=== PATIENT | female | born 1935 | race Caucasian/White ===

== ENCOUNTER 2018-06-02 09:48 | Emergency (ER) | payer MEDICARE ==
[2018-06-02 10:06] VITALS: BP 157/104
--- NOTE | 2018-06-02 11:11 | UC ---
Hand/Wrist HPI - HPI Summary HPI Summary: 82 yo female injured left hand during a fall last PM swollen this AM denies pain right handed denies other injury - History Of Current Complaint Chief Complaint: UCUpperExtremity Stated Complaint: HAND INJURY Time Seen by Provider: 06/02/18 10:36 Hx Obtained From: Patient Mechanism Of Injury: bent over to pet dog and fell forward Onset/Duration: Sudden Onset Severity Initially: Mild Severity Currently: None Pain Intensity: 0 Pain Scale Used: 0-10 Numeric Character Of Pain: Aching - hand feels tight Aggravating Factor(s): Movement Associated Signs And Symptoms: Positive: Swelling, Bruising Related History: Dominant Hand Right - Allergies/Home Medications Allergies/Adverse Reactions: Allergies Allergy/AdvReac Type Severity Reaction Status Date / Time No Known Allergies Allergy Verified 06/02/18 10:07 Home Medications: Home Medications Ascorbic Acid [Vitamin C] 1,000 mg PO DAILY 06/02/18 [History Confirmed 06/02/18 ] PMH/Surg Hx/FS Hx/Imm Hx Previously Healthy: Yes Endocrine History: Hypothyroidism - Surgical History Surgical History: Yes Surgery Procedure, Year, and Place: rt shoulder SX and replacement; recently FX left wrist X 2. REMOVAL OF LESION FROM LEG - Family History Known Family History: Positive: Hypertension - Social History Alcohol Use: Occasionally Substance Use Type: None Smoking Status (MU): Former Smoker Type: Cigarettes Amount Used/How Often: 1/4 PPD Length of Time of Smoking/Using Tobacco: 7 years Have You Smoked in the Last Year: No When Did the Patient Quit Smoking/Using Tobacco: 50 years ago - Immunization History Most Recent Influenza Vaccination: 2011 Most Recent Tetanus Shot: 2005 Most Recent Pneumonia Vaccination: 2004 Review of Systems All Other Systems Reviewed And Are Negative: Yes Constitutional: Positive: Negative Skin: Positive: Bruising Eyes: Positive: Negative ENT: Positive: Negative Respiratory: Positive: Negative Cardiovascular: Positive: Negative Gastrointestinal: Positive: Negative Genitourinary: Positive: Negative Motor: Positive: Negative Neurovascular: Positive: Negative Musculoskeletal: Positive: Edema - dorsal hand edema (L) Neurological: Positive: Negative Psychological: Positive: Negative Physical Exam Triage Information Reviewed: Yes Appearance: Well-Appearing, No Pain Distress, Well-Nourished Vital Signs: Initial Vital Signs Temp 98.7 F 06/02/18 10:00 Pulse 71 01/18/19 10:00 Resp 16 06/02/18 10:00 BP 157/104 06/02/18 10:00 Pulse Ox 96 06/02/18 10:00 Vital Signs Reviewed: Yes Eyes: Positive: Conjunctiva Clear ENT: Positive: Hearing grossly normal. Negative: Trismus, Muffled voice, Uvula midline Neck: Positive: Supple, Nontender, No Lymphadenopathy Respiratory: Positive: Lungs clear, Normal breath sounds, No respiratory distress, No accessory muscle use Cardiovascular: Positive: RRR, No Murmur Musculoskeletal: Positive: Other: - left dorsal hand edema/ecchymosis/no tender , wrist/elbow/shoulder ok Neurological: Positive: Alert Psychological Exam: Normal Diagnostics - Radiology No standard instances Radiology Interpretation Completed By: Radiologist Summary of Radiographic Findings: left hand- no fx Hand/Wrist Course/Dx - Differential Dx/Diagnosis Provider Diagnosis: Contusion of left hand Discharge - Sign-Out/Discharge Documenting (check all that apply): Patient Departure All imaging exams completed and their final reports reviewed: Yes - Discharge Plan Condition: Stable Disposition: HOME Patient Education Materials: Contusion in Adults (ED) Referrals: Dario Caceres MD [Primary Care Provider] - 2 Weeks (if not better) Additional Instructions: elevate tylenol if needed no fracture noted hardware looks good - Billing Disposition and Condition Condition: STABLE Disposition: Home
== END 2018-06-02 11:30 | disposition home or self-care (01) ==
LOC: UCEAST 09:48
DX: S60.222A Contusion of left hand, initial encounter (principal); W19.XXXA Unspecified fall, initial encounter; Y92.9 Unspecified place or not applicable; Z87.891 Personal history of nicotine dependence
CPT/HCPCS: 99211; G0463

== ENCOUNTER 2019-07-22 16:52 | Emergency (ER) | payer MEDICARE ==
--- OUTSIDE RECORDS SUMMARY | 2019-07-22 17:08 | XMS REPORT ---
:1935 Author Organization [facility] Care Team Providers Name Role Phone Unavailable Unavailable Unavailable Problems Condition Condition Condition Status Onset Resolution Last Treating Comments Name Details Category Date Date Treatment Clinician Date Age-related Age-related Diagnosis Active Soila osteoporosi osteoporosi 3-02 Smith s without s without current current pathologica pathologica l fracture l fracture Allergies, Adverse Reactions, Alerts Allergy Allergy Status Severity Reaction(s) Onset Inactive Treating Comments Name Type Date Date Clinician Unknown None Active Unknown None Unknown No Known Allergies For This Patient Medications Ordered Filled Start Stop Current Ordering Indication Dosage Frequency Signature Comments Components Medication Medication Date Date Medication? Clinician (SIG) Name Name Compounded Compounded 2019-0 Yes Law Unknown Unknown Medication Medication 3-03 Dario LOGAN - Calcmaddiem - Calcuim carb-vit carb-vit D3-magnesiu D3-magnesiu m m levothyroxi levothyroxi 2020-0 Yes Law Unknown Unknown ne 88 mcg ne 88 mcg 3- Dario LOGAN tablet tablet Multivitami Multivitami 2020-0 Yes Law Unknown Unknown n 50 Plus n 50 Plus 3- Dario LOGAN tablet tablet Vitamin C Vitamin C 2020-0 Yes Law Unknown Unknown With Mike With Mike 3- Dario LOGAN Hips 500 mg Hips 500 mg tablet tablet Procedures This patient has no known procedures. Results This patient has no known results.
--- OUTSIDE RECORDS SUMMARY | 2019-07-22 17:08 | XMS REPORT ---
:1935 Author Organization [facility] Care Team Providers Name Role Phone Unavailable Unavailable Unavailable Problems Condition Condition Condition Status Onset Resolution Last Treating Comments Name Details Category Date Date Treatment Clinician Date Unspecified Unspecified Diagnosis Active Soila diastolic diastolic - Smith (congestive (congestive ) heart ) heart failure failure Low back Low back Diagnosis Active Soila pain pain - Smith Hypothyroid Hypothyroid Diagnosis Active Soila ism, ism, - Smith unspecified unspecified Unspecified Unspecified Diagnosis Active Soila osteoarthri osteoarthri - Smith tis, tis, unspecified unspecified site site Sleep Sleep Diagnosis Active Soila apnea, apnea, 05-28 Smith unspecified unspecified 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, block, complete complete Personal Personal Diagnosis Active 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 Safety fall risk Safety Resolve 2019-05-28 Rigoberto factor d 05-28 11:13:00 Viola present 11:13: [id number] 00 Safety risk for Safety Resolve 2019-05-28 Rigboerto hospitaliza d 05-28 11:13:00 Viola tion 11:13: [id number] 00 Safety can be left Safety Resolve 2019-05-28 Rigoberto alone for d 05-28 11:13:00 Viola only short 11:13: [id number] periods 00 Diagnoses knowledge/s Diagnoses Resolve 2019-05-28 Rigoberto kill d 05-28 11:13:00 Viola deficit: pt 11:13: [id number] 00 Balance/End balance/hris coordinator PT/OT: Resolve 2019-05-28 Rigoberto urance rdination Balance/En d 1-13 11:13:00 Farrukhtrudy deficit durance 11:13: [id number] 00 OT: Self self-care OT: Resolve 2019-05-28 Rigoberto Care deficit Self-Care d 05-28 11:13:00 Rivkaziewicz 11:13: [id number] 00 Gait/Locomo gait PT/OT: Resolve 2019-05-28 Rigoberto tion assistive Gait/Locom d 05-28 11:13:00 Rivkavivianetrudy problems device otion 11:13: [id number] present 00 Gait/Locomo gait PT/OT: Resolve 2019-05-28 Rigoberto tion deficit Gait/Locom d 05-28 11:13:00 Parishicz problems otion 11:13: [id number] 00 Allergies, Adverse Reactions, Alerts Allergy Allergy Status Severity Reaction(s) Onset Inactive Treating Comments Name Type Date Date Clinician Unknown None Active Unknown None Unknown No Known Allergies For This Patient Medications Ordered Filled Start Stop Current Ordering Indication Dosage Frequency Signature Comments Components Medication Medication Date Date Medication? Clinician (SIG) Name Name Vitamin C Vitamin C Yes Law Unknown Unknown 500 mg 500 mg 05-28 MD,Dario tablet tablet alpha alpha Yes Law Unknown Unknown lipoic acid lipoic acid 05-28 MD,Dario 50 mg 50 mg tablet tablet ibuprofen ibuprofen Yes Law Unknown Unknown 200 mg 200 mg 05-28 MD,Dario capsule capsule levothyroxi levothyroxi Yes Law Unknown Unknown ne 88 mcg ne 88 mcg 05-28 MD,Dario tablet tablet multivitami multivitami Yes Law Unknown Unknown n capsule n capsule 05-28 MD,Dario Calcium 500 Calcium 500 Yes Law Unknown Unknown + D 500 mg + D 500 mg 05-28 MD,Dario (1,250 (1,250 mg)-200 mg)-200 unit tablet unit tablet Vital Signs Vital Name Observation Time Observation Value Comments SYSTOLIC mm[Hg] 2019-05-28 18:09:51 130 mm[Hg] mm[Hg] Method: Sit SYSTOLIC mm[Hg] 2019-05-29 18:09:52 130 mm[Hg] mm[Hg] Method: Stand DIASTOLIC mm[Hg] 2019-05-28 18:09:51 64 mm[Hg] mm[Hg] Method: Sit DIASTOLIC mm[Hg] 2019-05-29 18:09:52 70 mm[Hg] mm[Hg] Method: Stand PULSE 2019-05-28 18:09:51 61 /min /min Procedures This patient has no known procedures. Results This patient has no known results.
--- OUTSIDE RECORDS SUMMARY | 2019-07-22 17:08 | XMS REPORT ---
:1935 Author Organization [facility] Care Team Providers Name Role Phone Unavailable [...] factor d 05-28 11:13:00 Viola present 11:13: [id number] 00 Safety risk for Safety Resolve 2019-05-28 Rigoberto hospitaliza d 05-28 11:13:00 Viola tion 11:13: [id number] 00 Safety can be left Safety Resolve 2019-05-28 Rigoberto alone for d 05-28 11:13:00 Viola only short 11:13: [id number] periods 00 Diagnoses knowledge/s Diagnoses Resolve 2019-05-28 Rigoberto kill d 05-28 11:13:00 Viola deficit: pt 11:13: [id number] 00 Balance/End balance/ranch cook PT/OT: Resolve 2019-05-28 Rigoberto urance rdination Balance/En d 1-13 11:13:00 Farrukhtrudy deficit durance 11:13: [id number] 00 OT: Self self-care OT: Resolve 2019-05-28 Rigoberto Care deficit Self-Care d 05-28 11:13:00 Rivkaziewicz 11:13: [id number] 00 Gait/Locomo gait PT/OT: Resolve 2019-05-28 Rigoberto tion assistive Gait/Locom d 05-28 11:13:00 Rivkavivianetrudy problems device otion 11:13: [id number] present 00 Gait/Locomo gait PT/OT: Resolve 2019-05-28 Rigoberto tion deficit Gait/Locom d 05-28 11:13:00 Parishicz problems otion 11:13: [id number] 00 Allergies, Adverse Reactions, Alerts Allergy Allergy [...]
--- OUTSIDE RECORDS SUMMARY | 2019-07-22 17:08 | XMS REPORT ---
:1935 Author Organization [facility] Care Team Providers Name Role Phone Unavailable [...] Medication? Clinician (SIG) Name Name Compounded Compounded 0 Yes Law Unknown Unknown Medication Medication 3-03 [...]
--- OUTSIDE RECORDS SUMMARY | 2019-07-22 17:08 | XMS REPORT ---
:1935 Author Organization [facility] Care Team Providers Name Role Phone Unavailable [...]
--- OUTSIDE RECORDS SUMMARY | 2019-07-22 17:08 | XMS REPORT ---
:1935 Author Organization [facility] Care Team Providers Name Role Phone Unavailable [...]
--- OUTSIDE RECORDS SUMMARY | 2019-07-22 17:08 | XMS REPORT ---
:1935 Author Organization [facility] Care Team Providers Name Role Phone Unavailable [...] factor d 05-28 11:13:00 Viola present 11:13: [id number] 00 Safety risk for Safety Resolve 2019-05-28 Rigoberto hospitaliza d 05-28 11:13:00 Viola tion 11:13: [id number] 00 Safety can be left Safety Resolve 2019-05-28 Rigoberto alone for d 05-28 11:13:00 Viola only short 11:13: [id number] periods 00 Diagnoses knowledge/s Diagnoses Resolve 2019-05-28 Rigoberto kill d 05-28 11:13:00 Viola deficit: pt 11:13: [id number] 00 Balance/End balance/pharmacy benefits coordinator PT/OT: Resolve 2019-05-28 Rigoberto urance rdination Balance/En d 1-13 11:13:00 Farrukhtrudy deficit durance 11:13: [id number] 00 OT: Self self-care OT: Resolve 2019-05-28 Rigoberto Care deficit Self-Care d 05-28 11:13:00 Rivkaziewicz 11:13: [id number] 00 Gait/Locomo gait PT/OT: Resolve 2019-05-28 Rigoberto tion assistive Gait/Locom d 05-28 11:13:00 Rivkavivianetrudy problems device otion 11:13: [id number] present 00 Gait/Locomo gait PT/OT: Resolve 2019-05-28 Rigoberto tion deficit Gait/Locom d 05-28 11:13:00 Parishicz problems otion 11:13: [id number] 00 Allergies, Adverse Reactions, Alerts Allergy Allergy [...]
--- OUTSIDE RECORDS SUMMARY | 2019-07-22 17:08 | XMS REPORT ---
:1935 Author Organization [facility] Care Team Providers Name Role Phone Unavailable [...] factor d 05-28 11:13:00 Viola present 11:13: [id number] 00 Safety risk for Safety Resolve 2019-05-28 Rigoberto hospitaliza d 05-28 11:13:00 Viola tion 11:13: [id number] 00 Safety can be left Safety Resolve 2019-05-28 Rigoberto alone for d 05-28 11:13:00 Viola only short 11:13: [id number] periods 00 Diagnoses knowledge/s Diagnoses Resolve 2019-05-28 Rigoberto kill d 05-28 11:13:00 Viola deficit: pt 11:13: [id number] 00 Balance/End balance/project coordinator PT/OT: Resolve 2019-05-28 Rigoberto urance rdination Balance/En d 1-13 11:13:00 Farrukhtrudy deficit durance 11:13: [id number] 00 OT: Self self-care OT: Resolve 2019-05-28 Rigoberto Care deficit Self-Care d 05-28 11:13:00 Rivkaziewicz 11:13: [id number] 00 Gait/Locomo gait PT/OT: Resolve 2019-05-28 Rigoberto tion assistive Gait/Locom d 05-28 11:13:00 Rivkavivianetrudy problems device otion 11:13: [id number] present 00 Gait/Locomo gait PT/OT: Resolve 2019-05-28 Rigoberto tion deficit Gait/Locom d 05-28 11:13:00 Parishicz problems otion 11:13: [id number] 00 Allergies, Adverse Reactions, Alerts Allergy Allergy [...]
--- OUTSIDE RECORDS SUMMARY | 2019-07-22 17:08 | XMS REPORT ---
:1935 Author Organization [facility] Care Team Providers Name Role Phone Unavailable Unavailable Unavailable Problems Condition Condition Condition Status Onset Resolution Last Treating Comments Name Details Category Date Date Treatment Clinician Date Age-related Age-related Diagnosis Active Jenny osteoporosi osteoporosi 3-02 Wendela s without s without [id number] current current pathologica pathologica l fracture l fracture Allergies, Adverse Reactions, Alerts Allergy Allergy Status Severity Reaction(s) Onset Inactive Treating Comments Name Type Date Date Clinician Unknown None Active Unknown None Unknown No Known Allergies For This Patient Medications Ordered Filled Start Stop Current Ordering Indication Dosage Frequency Signature Comments Components Medication Medication Date Date Medication? Clinician (SIG) Name Name No Known No Known No None None None Medications Medications For This For This Patient Patient Procedures This patient has no known procedures. Results This patient has no known results.
--- OUTSIDE RECORDS SUMMARY | 2019-07-22 17:08 | XMS REPORT ---
:1935 Author Organization [facility] Care Team Providers Name Role Phone Unavailable [...] factor d 05-28 11:13:00 Viola present 11:13: [id number] 00 Safety risk for Safety Resolve 2019-05-28 Rigoberto hospitaliza d 05-28 11:13:00 Viola tion 11:13: [id number] 00 Safety can be left Safety Resolve 2019-05-28 Rigoberto alone for d 05-28 11:13:00 Viola only short 11:13: [id number] periods 00 Diagnoses knowledge/s Diagnoses Resolve 2019-05-28 Rigoberto kill d 05-28 11:13:00 Viola deficit: pt 11:13: [id number] 00 Balance/End balance/behavioral health care coordinator PT/OT: Resolve 2019-05-28 Rigoberto urance rdination Balance/En d 1-13 11:13:00 Farrukhtrudy deficit durance 11:13: [id number] 00 OT: Self self-care OT: Resolve 2019-05-28 Rigoberto Care deficit Self-Care d 05-28 11:13:00 Rivkaziewicz 11:13: [id number] 00 Gait/Locomo gait PT/OT: Resolve 2019-05-28 Rigoberto tion assistive Gait/Locom d 05-28 11:13:00 Rivkavivianetrudy problems device otion 11:13: [id number] present 00 Gait/Locomo gait PT/OT: Resolve 2019-05-28 Rigoberto tion deficit Gait/Locom d 05-28 11:13:00 Parishicz problems otion 11:13: [id number] 00 Allergies, Adverse Reactions, Alerts Allergy Allergy [...]
--- OUTSIDE RECORDS SUMMARY | 2019-07-22 17:08 | XMS REPORT ---
:1935 Author Organization [facility] Care Team Providers Name Role Phone Unavailable [...]
--- OUTSIDE RECORDS SUMMARY | 2019-07-22 17:09 | XMS REPORT ---
:1935 Author Organization [facility] Care Team Providers Name Role Phone Unavailable [...] factor d 05-28 11:13:00 Viola present 11:13: [id number] 00 Safety risk for Safety Resolve 2019-05-28 Rigoberto hospitaliza d 05-28 11:13:00 Viola tion 11:13: [id number] 00 Safety can be left Safety Resolve 2019-05-28 Rigoberto alone for d 05-28 11:13:00 Viola only short 11:13: [id number] periods 00 Diagnoses knowledge/s Diagnoses Resolve 2019-05-28 Rigoberto kill d 05-28 11:13:00 Viola deficit: pt 11:13: [id number] 00 Balance/End balance/human service coordinator PT/OT: Resolve 2019-05-28 Rigoberto urance rdination Balance/En d 1-13 11:13:00 Farrukhtrudy deficit durance 11:13: [id number] 00 OT: Self self-care OT: Resolve 2019-05-28 Rigoberto Care deficit Self-Care d 05-28 11:13:00 Rivkaziewicz 11:13: [id number] 00 Gait/Locomo gait PT/OT: Resolve 2019-05-28 Rigoberto tion assistive Gait/Locom d 05-28 11:13:00 Rivkavivianetrudy problems device otion 11:13: [id number] present 00 Gait/Locomo gait PT/OT: Resolve 2019-05-28 Rigoberto tion deficit Gait/Locom d 05-28 11:13:00 Parishicz problems otion 11:13: [id number] 00 Allergies, Adverse Reactions, Alerts Allergy Allergy [...]
--- OUTSIDE RECORDS SUMMARY | 2019-07-22 17:09 | XMS REPORT ---
:1935 Author Organization [facility] Care Team Providers Name Role Phone Unavailable Unavailable Unavailable Problems This patient has no known problems. Allergies, Adverse Reactions, Alerts Allergy Allergy Status [...]
--- OUTSIDE RECORDS SUMMARY | 2019-07-22 17:09 | XMS REPORT ---
:1935 Author Organization [facility] Care Team Providers Name Role Phone Unavailable [...] factor d 05-28 11:13:00 Viola present 11:13: [id number] Safety risk for Safety Resolve 2019-05-28 Rigoberto hospitaliza d 05-28 11:13:00 Viola tion 11:13: [id number] 00 Safety can be left Safety Resolve 2019-05-28 Rigoberto alone for d 05-28 11:13:00 Viola only short 11:13: [id number] periods 00 Diagnoses knowledge/s Diagnoses Resolve 2019-05-28 Rigoberto kill d 05-28 11:13:00 Viola deficit: pt 11:13: [id number] 00 Balance/End balance/document coordinator PT/OT: Resolve 2019-05-28 Rigoberto urance rdination Balance/En d 1-13 11:13:00 Farrukhtrudy deficit durance 11:13: [id number] 00 OT: Self self-care OT: Resolve 2019-05-28 Rigoberto Care deficit Self-Care d 05-28 11:13:00 Rivkaziewicz 11:13: [id number] 00 Gait/Locomo gait PT/OT: Resolve 2019-05-28 Rigoberto tion assistive Gait/Locom d 05-28 11:13:00 Rivkavivianetrudy problems device otion 11:13: [id number] present 00 Gait/Locomo gait PT/OT: Resolve 2019-05-28 Rigoberto tion deficit Gait/Locom d 05-28 11:13:00 Parishicz problems otion 11:13: [id number] 00 Allergies, Adverse Reactions, Alerts Allergy Allergy [...]
--- OUTSIDE RECORDS SUMMARY | 2019-07-22 17:09 | XMS REPORT ---
:1935 Author Organization [facility] Care Team Providers Name Role Phone Unavailable [...] factor d 05-28 11:13:00 Viola present 11:13: [id number] 00 Safety risk for Safety Resolve 2019-05-28 Rigoberto hospitaliza d 05-28 11:13:00 Viola tion 11:13: [id number] 00 Safety can be left Safety Resolve 2019-05-28 Rigoberto alone for d 05-28 11:13:00 Viola only short 11:13: [id number] periods 00 Diagnoses knowledge/s Diagnoses Resolve 2019-05-28 Rigoberto kill d 05-28 11:13:00 Viola deficit: pt 11:13: [id number] 00 Balance/End balance/medical records coordinator PT/OT: Resolve 2019-05-28 Rigoberto urance rdination Balance/En d 1-13 11:13:00 Farrukhtrudy deficit durance 11:13: [id number] 00 OT: Self self-care OT: Resolve 2019-05-28 Rigoberto Care deficit Self-Care d 05-28 11:13:00 Rivkaziewicz 11:13: [id number] 00 Gait/Locomo gait PT/OT: Resolve 2019-05-28 Rigoberto tion assistive Gait/Locom d 05-28 11:13:00 Rivkavivianetrudy problems device otion 11:13: [id number] present 00 Gait/Locomo gait PT/OT: Resolve 2019-05-28 Rigoberto tion deficit Gait/Locom d 05-28 11:13:00 Parishicz problems otion 11:13: [id number] 00 Allergies, Adverse Reactions, Alerts Allergy Allergy [...]
--- OUTSIDE RECORDS SUMMARY | 2019-07-22 17:09 | XMS REPORT ---
:1935 Author Organization [facility] Care Team Providers Name Role Phone Unavailable [...] factor d 05-28 11:13:00 Viola present 11:13: [id number] 00 Safety risk for Safety Resolve 2019-05-28 Rigoberto hospitaliza d 05-28 11:13:00 Viola tion 11:13: [id number] 00 Safety can be left Safety Resolve 2019-05-28 Rigoberto alone for d 05-28 11:13:00 Viola only short 11:13: [id number] periods 00 Diagnoses knowledge/s Diagnoses Resolve 2019-05-28 Rigoberto kill d 05-28 11:13:00 Viola deficit: pt 11:13: [id number] 00 Balance/End balance/cook pickled meat PT/OT: Resolve 2019-05-28 Rigoberto urance rdination Balance/En d 1-13 11:13:00 Farrukhtrudy deficit durance 11:13: [id number] 00 OT: Self self-care OT: Resolve 2019-05-28 Rigoberto Care deficit Self-Care d 05-28 11:13:00 Rivkaziewicz 11:13: [id number] 00 Gait/Locomo gait PT/OT: Resolve 2019-05-28 Rigoberto tion assistive Gait/Locom d 05-28 11:13:00 Rivkavivianetrudy problems device otion 11:13: [id number] present 00 Gait/Locomo gait PT/OT: Resolve 2019-05-28 Rigoberto tion deficit Gait/Locom d 05-28 11:13:00 Parishicz problems otion 11:13: [id number] 00 Allergies, Adverse Reactions, Alerts Allergy Allergy [...]
--- OUTSIDE RECORDS SUMMARY | 2019-07-22 17:09 | XMS REPORT ---
:1935 Author Organization [facility] Care Team Providers Name Role Phone Unavailable Unavailable Unavailable Problems Condition Condition Condition Status Onset Resolution Last Treating Comments Name Details Category Date Date Treatment Clinician Date Unspecified Unspecified Diagnosis Active Soila diastolic diastolic - Smith (congestive (congestive ) heart ) heart failure failure Low back Low back Diagnosis Active Soila pain pain - Smith Hypothyroid Hypothyroid Diagnosis Active Soial ism, ism, - Smith unspecified unspecified Unspecified [...] factor d 05-28 11:13:00 Viola present 11:13: [id number] 00 Safety risk for Safety Resolve 2019-05-28 Rigoberto hospitaliza d 05-28 11:13:00 Viola tion 11:13: [id number] 00 Safety can be left Safety Resolve 2019-05-28 Rigoberto alone for d 05-28 11:13:00 Viola only short 11:13: [id number] periods 00 Diagnoses knowledge/s Diagnoses Resolve 2019-05-28 Rigoberto kill d 05-28 11:13:00 Viola deficit: pt 11:13: [id number] 00 Balance/End balance/appraisal coordinator PT/OT: Resolve 2019-05-28 Rigoberto urance rdination Balance/En d 1-13 11:13:00 Farrukhtrudy deficit durance 11:13: [id number] 00 OT: Self self-care OT: Resolve 2019-05-28 Rigoberto Care deficit Self-Care d 05-28 11:13:00 Rivkaziewicz 11:13: [id number] 00 Gait/Locomo gait PT/OT: Resolve 2019-05-28 Rigoberto tion assistive Gait/Locom d 05-28 11:13:00 Rivkavivianetrudy problems device otion 11:13: [id number] present 00 Gait/Locomo gait PT/OT: Resolve 2019-05-28 Rigoberto tion deficit Gait/Locom d 05-28 11:13:00 Parishicz problems otion 11:13: [id number] 00 Allergies, Adverse Reactions, Alerts Allergy Allergy [...]
--- OUTSIDE RECORDS SUMMARY | 2019-07-22 17:09 | XMS REPORT ---
:1935 Author Organization [facility] Care Team Providers Name Role Phone Unavailable [...] factor d 05-28 11:13:00 Viola present 11:13: [id number] Safety risk for Safety Resolve 2019-05-28 Rigoberto hospitaliza d 05-28 11:13:00 Viola tion 11:13: [id number] 00 Safety can be left Safety Resolve 2019-05-28 Rigoberto alone for d 05-28 11:13:00 Viola only short 11:13: [id number] periods 00 Diagnoses knowledge/s Diagnoses Resolve 2019-05-28 Rigoberto kill d 05-28 11:13:00 Viola deficit: pt 11:13: [id number] 00 Balance/End balance/nursing program coordinator PT/OT: Resolve 2019-05-28 Rigoberto urance rdination Balance/En d 1-13 11:13:00 Farrukhtrudy deficit durance 11:13: [id number] 00 OT: Self self-care OT: Resolve 2019-05-28 Rigoberto Care deficit Self-Care d 05-28 11:13:00 Rivkaziewicz 11:13: [id number] 00 Gait/Locomo gait PT/OT: Resolve 2019-05-28 Rigoberto tion assistive Gait/Locom d 05-28 11:13:00 Rivkavivianetrudy problems device otion 11:13: [id number] present 00 Gait/Locomo gait PT/OT: Resolve 2019-05-28 Rigoberto tion deficit Gait/Locom d 05-28 11:13:00 Parishicz problems otion 11:13: [id number] 00 Allergies, Adverse Reactions, Alerts Allergy Allergy [...]
--- OUTSIDE RECORDS SUMMARY | 2019-07-22 17:09 | XMS REPORT ---
:1935 Author Organization [facility] Care Team Providers Name Role Phone Unavailable Unavailable Unavailable Problems Condition Condition Condition Status Onset Resolution Last Treating Comments Name Details Category Date Date Treatment Clinician Date Unspecified Unspecified Diagnosis Active Soila diastolic diastolic - Smith (congestive (congestive ) heart ) heart failure failure Low back Low back Diagnosis Active Soila pain pain - Smiht Hypothyroid Hypothyroid Diagnosis Active Soila ism, ism, [...] factor d 05-28 11:13:00 Viola present 11:13: [id number] 00 Safety risk for Safety Resolve 2019-05-28 Rigoberto hospitaliza d 05-28 11:13:00 Viola tion 11:13: [id number] 00 Safety can be left Safety Resolve 2019-05-28 Rigoberto alone for d 05-28 11:13:00 Viola only short 11:13: [id number] periods 00 Diagnoses knowledge/s Diagnoses Resolve 2019-05-28 Rigoberto kill d 05-28 11:13:00 Viola deficit: pt 11:13: [id number] 00 Balance/End balance/coordinator of rehabilitation services PT/OT: Resolve 2019-05-28 Rigoberto urance rdination Balance/En d 1-13 11:13:00 Farrukhtrudy deficit durance 11:13: [id number] 00 OT: Self self-care OT: Resolve 2019-05-28 Rigoberto Care deficit Self-Care d 05-28 11:13:00 Rivkaziewicz 11:13: [id number] 00 Gait/Locomo gait PT/OT: Resolve 2019-05-28 Rigoberto tion assistive Gait/Locom d 05-28 11:13:00 Rivkavivianetrudy problems device otion 11:13: [id number] present 00 Gait/Locomo gait PT/OT: Resolve 2019-05-28 Rigoberto tion deficit Gait/Locom d 05-28 11:13:00 Parishicz problems otion 11:13: [id number] 00 Allergies, Adverse Reactions, Alerts Allergy Allergy [...]
--- OUTSIDE RECORDS SUMMARY | 2019-07-22 17:09 | XMS REPORT ---
:1935 Author Organization [facility] Care Team Providers Name Role Phone Unavailable [...] factor d 05-28 11:13:00 Viola present 11:13: [id number] 00 Safety risk for Safety Resolve 2019-05-28 Rigoberto hospitaliza d 05-28 11:13:00 Viola tion 11:13: [id number] 00 Safety can be left Safety Resolve 2019-05-28 Rigoberto alone for d 05-28 11:13:00 Viola only short 11:13: [id number] periods 00 Diagnoses knowledge/s Diagnoses Resolve 2019-05-28 Rigoberto kill d 05-28 11:13:00 Viola deficit: pt 11:13: [id number] 00 Balance/End balance/employment educational coord PT/OT: Resolve 2019-05-28 Rigoberto urance rdination Balance/En d 1-13 11:13:00 Farrukhtrudy deficit durance 11:13: [id number] 00 OT: Self self-care OT: Resolve 2019-05-28 Rigoberto Care deficit Self-Care d 05-28 11:13:00 Rivkaziewicz 11:13: [id number] 00 Gait/Locomo gait PT/OT: Resolve 2019-05-28 Rigoberto tion assistive Gait/Locom d 05-28 11:13:00 Rivkavivianetrudy problems device otion 11:13: [id number] present 00 Gait/Locomo gait PT/OT: Resolve 2019-05-28 Rigoberto tion deficit Gait/Locom d 05-28 11:13:00 Parishicz problems otion 11:13: [id number] 00 Allergies, Adverse Reactions, Alerts Allergy Allergy [...]
--- OUTSIDE RECORDS SUMMARY | 2019-07-22 17:09 | XMS REPORT ---
:1935 Author Organization [facility] Care Team Providers Name Role Phone Unavailable [...] factor d 05-28 11:13:00 Viola present 11:13: [id number] 00 Safety risk for Safety Resolve 2019-05-28 Rigoberto hospitaliza d 05-28 11:13:00 Viola tion 11:13: [id number] 00 Safety can be left Safety Resolve 2019-05-28 Rigoberto alone for d 05-28 11:13:00 Viola only short 11:13: [id number] periods 00 Diagnoses knowledge/s Diagnoses Resolve 2019-05-28 Rigoberto kill d 05-28 11:13:00 Viola deficit: pt 11:13: [id number] 00 Balance/End balance/traffic coordinator PT/OT: Resolve 2019-05-28 Rigoberto urance rdination Balance/En d 1-13 11:13:00 Farrukhtrudy deficit durance 11:13: [id number] 00 OT: Self self-care OT: Resolve 2019-05-28 Rigoberto Care deficit Self-Care d 05-28 11:13:00 Rivkaziewicz 11:13: [id number] 00 Gait/Locomo gait PT/OT: Resolve 2019-05-28 Rigoberto tion assistive Gait/Locom d 05-28 11:13:00 Rivkavivianetrudy problems device otion 11:13: [id number] present 00 Gait/Locomo gait PT/OT: Resolve 2019-05-28 Rigoberto tion deficit Gait/Locom d 05-28 11:13:00 Parishicz problems otion 11:13: [id number] 00 Allergies, Adverse Reactions, Alerts Allergy Allergy [...]
--- OUTSIDE RECORDS SUMMARY | 2019-07-22 17:09 | XMS REPORT ---
:1935 Author Organization [facility] Care Team Providers Name Role Phone Unavailable [...] factor d 05-28 11:13:00 Viola present 11:13: [id number] 00 Safety risk for Safety Resolve 2019-05-28 Rigoberto hospitaliza d 05-28 11:13:00 Viola tion 11:13: [id number] 00 Safety can be left Safety Resolve 2019-05-28 Rigoberto alone for d 05-28 11:13:00 Viola only short 11:13: [id number] periods 00 Diagnoses knowledge/s Diagnoses Resolve 2019-05-28 Rigoberto kill d 05-28 11:13:00 Viola deficit: pt 11:13: [id number] 00 Balance/End balance/network development coordinator PT/OT: Resolve 2019-05-28 Rigoberto urance rdination Balance/En d 1-13 11:13:00 Farrukhtrudy deficit durance 11:13: [id number] 00 OT: Self self-care OT: Resolve 2019-05-28 Rigoberto Care deficit Self-Care d 05-28 11:13:00 Rivkaziewicz 11:13: [id number] 00 Gait/Locomo gait PT/OT: Resolve 2019-05-28 Rigoberto tion assistive Gait/Locom d 05-28 11:13:00 Rivkavivianetrudy problems device otion 11:13: [id number] present 00 Gait/Locomo gait PT/OT: Resolve 2019-05-28 Rigoberto tion deficit Gait/Locom d 05-28 11:13:00 Parishicz problems otion 11:13: [id number] 00 Allergies, Adverse Reactions, Alerts Allergy Allergy [...]
--- OUTSIDE RECORDS SUMMARY | 2019-07-22 17:09 | XMS REPORT ---
:1935 Author Organization [facility] Care Team Providers Name Role Phone Unavailable [...] factor d 05-28 11:13:00 Viola present 11:13: [id number] 00 Safety risk for Safety Resolve 2019-05-28 Rigoberto hospitaliza d 05-28 11:13:00 Viola tion 11:13: [id number] 00 Safety can be left Safety Resolve 2019-05-28 Rigoberto alone for d 05-28 11:13:00 Viola only short 11:13: [id number] periods 00 Diagnoses knowledge/s Diagnoses Resolve 2019-05-28 Rigoberto kill d 05-28 11:13:00 Viola deficit: pt 11:13: [id number] 00 Balance/End balance/data coordinator PT/OT: Resolve 2019-05-28 Rigoberto urance rdination Balance/En d 1-13 11:13:00 Farrukhtrudy deficit durance 11:13: [id number] 00 OT: Self self-care OT: Resolve 2019-05-28 Rigoberto Care deficit Self-Care d 05-28 11:13:00 Rivkaziewicz 11:13: [id number] 00 Gait/Locomo gait PT/OT: Resolve 2019-05-28 Rigoberto tion assistive Gait/Locom d 05-28 11:13:00 Rivkavivianetrudy problems device otion 11:13: [id number] present 00 Gait/Locomo gait PT/OT: Resolve 2019-05-28 Rigoberto tion deficit Gait/Locom d 05-28 11:13:00 Parishicz problems otion 11:13: [id number] 00 Allergies, Adverse Reactions, Alerts Allergy Allergy [...]
--- OUTSIDE RECORDS SUMMARY | 2019-07-22 17:09 | XMS REPORT ---
:1935 Author Organization [facility] Care Team Providers Name Role Phone Unavailable [...] factor d 05-28 11:13:00 Viola present 11:13: [id number] 00 Safety risk for Safety Resolve 2019-05-28 Rigoberto hospitaliza d 05-28 11:13:00 Viola tion 11:13: [id number] 00 Safety can be left Safety Resolve 2019-05-28 Rigoberto alone for d 05-28 11:13:00 Viola only short 11:13: [id number] periods 00 Diagnoses knowledge/s Diagnoses Resolve 2019-05-28 Rigoberto kill d 05-28 11:13:00 Viola deficit: pt 11:13: [id number] 00 Balance/End balance/epic application coordinator PT/OT: Resolve 2019-05-28 Rigoberto urance rdination Balance/En d 1-13 11:13:00 Farrukhtrudy deficit durance 11:13: [id number] 00 OT: Self self-care OT: Resolve 2019-05-28 Rigoberto Care deficit Self-Care d 05-28 11:13:00 Rivkaziewicz 11:13: [id number] 00 Gait/Locomo gait PT/OT: Resolve 2019-05-28 Rigoberto tion assistive Gait/Locom d 05-28 11:13:00 Rivkavivianetrudy problems device otion 11:13: [id number] present 00 Gait/Locomo gait PT/OT: Resolve 2019-05-28 Rigoberto tion deficit Gait/Locom d 05-28 11:13:00 Parishicz problems otion 11:13: [id number] 00 Allergies, Adverse Reactions, Alerts Allergy Allergy [...]
--- NOTE | 2019-07-22 17:27 | ED ---
Lower Extremity - HPI Summary HPI Summary: 83-year-old female presents with left hip pain today. States that she fell three times two weeks ago and landed on that hip. States that it is causing pain only when she walks. States has not be able to ambulate as far. She normally walks with a walker. She normally walks about a mile a day but is unable to do so. She has not fallen since. Family states that she fell as she was having episodes of A. fib and was not using her CPAP. Her pacemaker was interrogated so she is not have the a fib anymore and CPAP was fixed so that has resolved and has not fallen since. She denies any head injury. no LOC. no other pain. no dizziness. no chest pain or SOB. - History of Current Complaint Chief Complaint: EDHipPelvisInjury Stated Complaint: LEFT HIP PAIN FALL Time Seen by Provider: 07/22/19 17:13 Pain Intensity: 2 - Allergies/Home Medications Allergies/Adverse Reactions: Allergies Allergy/AdvReac Type Severity Reaction Status Date / Time No Known Allergies Allergy Verified 07/22/19 17:00 Home Medications: Home Medications Multivit-Min/Ferrous Gluconate [Multivitamin & Mineral] 1 tab PO DAILY 03/02/12 [History Confirmed 07/22/19] Calcium Carb/Mag Ox/Zinc Sulf [Calcium & Magnesium + Zin 334-134-5 mg] 1 tab PO DAILY 02/03/16 [History Confirmed 07/22/19] Levothyroxine TAB* [Synthroid TAB*] 88 mcg PO 0800 02/03/16 [History Confirmed 07/22/19] Ascorbic Acid [Vitamin C] 1,000 mg PO DAILY 06/02/18 [History Confirmed 07/22/19 ] PMH/Surg Hx/FS Hx/Imm Hx Endocrine/Hematology History: Reports: Hx Thyroid Disease - hypo Denies: Hx Diabetes, Hx Anemia Cardiovascular History: Reports: Hx Hypertension - IN THE PAST WHEN NERVOUS- NO PROBLEMS RECENTLY, Other Cardiovascular Problems/Disorders - COUPLE OF EPISODES OF CHEST PRESSURE WHEN WAS YOUNGER Denies: Hx Pacemaker/ICD Respiratory History: Reports: Hx Sleep Apnea Denies: Hx Asthma, Hx Chronic Obstructive Pulmonary Disease (COPD) GI History: Denies: Hx Jaundice, Hx Ulcer Musculoskeletal History: Reports: Hx Arthritis - fingers, Hx Osteoporosis Sensory History: Reports: Hx Contacts or Glasses - GLASSES, Hx Hearing Aid Opthamlomology History: Reports: Hx Contacts or Glasses - GLASSES Neurological History: Reports: Hx Headaches, Hx Migraine - WHEN WAS YOUNGER- STATES WAS RELATED TO COFFEE Psychiatric History: Denies: Hx Panic Disorder - Cancer History Cancer Type, Location and Year: melanoma of the right leg at age 18 . Hx Chemotherapy: No Hx Radiation Therapy: No Hx Palliative Cancer Treatment: No - Surgical History Surgery Procedure, Year, and Place: rt shoulder SX and replacement; recently FX left wrist X 2. REMOVAL OF LESION FROM LEG Hx Anesthesia Reactions: No Infectious Disease History: No Infectious Disease History: Denies: Hx Clostridium Difficile, Hx Hepatitis, Hx Human Immunodeficiency Virus (HIV), Hx of Known/Suspected MRSA, Hx Shingles, Hx Tuberculosis, Hx Known/ Suspected VRE, Hx Known/Suspected VRSA, History Other Infectious Disease, Traveled Outside the [place] in Last 30 Days - Family History Known Family History: Positive: Hypertension - Social History Alcohol Use: Occasionally Substance Use Type: Reports: None Smoking Status (MU): Former Smoker Type: Cigarettes Amount Used/How Often: 1/4 PPD Length of Time of Smoking/Using Tobacco: 7 years Have You Smoked in the Last Year: No Review of Systems Negative: Fever Negative: Chest Pain Negative: Shortness Of Breath Positive: Myalgia - left hip pain All Other Systems Reviewed And Are Negative: Yes Physical Exam Triage Information Reviewed: Yes Vital Signs On Initial Exam: Initial Vitals Temp Pulse Resp BP Pulse Ox 98.9 F 80 16 141/83 93 07/22/19 16:53 07/22/19 16:53 07/22/19 16:53 07/22/19 16:53 07/22/19 16:53 Vital Signs Reviewed: Yes Appearance: Positive: Well-Appearing Skin: Positive: Warm, Dry Head/Face: Positive: Normal Head/Face Inspection Eyes: Positive: Normal, Conjunctiva Clear ENT: Positive: Pharynx normal Respiratory/Lung Sounds: Positive: Clear to Auscultation, Breath Sounds Present Cardiovascular: Positive: Normal, RRR Musculoskeletal: Positive: Strength/ROM Intact - left hip, Other - good pulses, tenderness over left hip, no ecchymosis, nontender back, sensation grossly intact, good pulses Neurological: Positive: Normal Psychiatric: Positive: Normal Procedures - Sedation Patient Received Moderate/Deep Sedation with Procedure: No Diagnostics - Vital Signs Vital Signs Temp Pulse Resp BP Pulse Ox 07/22/19 16:53 98.9 F 80 16 141/83 93 - Laboratory Lab Statement: Any lab studies that have been ordered have been reviewed, and results considered in the medical decision making process. - Radiology hip Radiology Interpretation Completed By: Radiologist Summary of Radiographic Findings: IMPRESSION: OSTEOPENIA WITH NO DISPLACED FRACTURE. IF THE PATIENT'S SYMPTOMS PERSIST RECOMMEND FOLLOW-UP IMAGING. Lower Extremity Course/Dx - Course Course Of Treatment: 83-year-old female presents with left hip pain today. States that she fell three times two weeks ago and landed on that hip. States that it is causing pain only when she walks. States has not be able to ambulate as far. She normally walks with a walker. She normally walks about a mile a day but is unable to do so. She has not fallen since. Family states that she fell as she was having episodes of A. fib and was not using her CPAP. Her pacemaker was interrogated so she is not have the a fib anymore and CPAP was fixed so that has resolved and has not fallen since. She denies any head injury. no LOC. no other pain. no dizziness. no chest pain or SOB. On exam tenderness over left hip. Neurovascular intact. Has good strength left hip. X -rays show no fracture. was able to walk in ED. as is able to walk did not get further imaging. will have follow up with primary and PT. patient understand and agrees with plan. - Diagnoses Differential Diagnosis/HQI/PQRI: Positive: Fracture (Closed), Sprain, Strain Provider Diagnoses: Left hip pain Discharge ED - Sign-Out/Discharge Documenting (check all that apply): Patient Departure - Discharge Plan Condition: Good Disposition: HOME Patient Education Materials: Hip Pain (ED) Referrals: Dario Caceres MD [Primary Care Provider] - [facility] [place] Physical therapy,PT [Medical Doctor] - Additional Instructions: take tyenlol for pain every 6 hours as needed apply ice ambulate as tolerated follow up with primary follow up with PT Return to ED if develop any new or worsening symptoms - Billing Disposition and Condition Condition: GOOD Disposition: Home
[2019-07-22 19:05] VITALS: BP 128/61
== END 2019-07-22 19:02 | disposition home or self-care (01) ==
LOC: ED 16:52
DX: M25.552 Pain in left hip (principal); I10 Essential (primary) hypertension; E03.9 Hypothyroidism, unspecified; R51 Headache; Z87.891 Personal history of nicotine dependence; Z79.899 Other long term (current) drug therapy; Z79.890 Hormone replacement therapy
CPT/HCPCS: 99282

== ENCOUNTER 2019-08-01 20:49 | Emergency (ER) | payer MEDICARE ==
--- OUTSIDE RECORDS SUMMARY | 2019-08-01 21:05 | XMS REPORT ---
:1935 Author Organization [facility] Care Team Providers Name Role Phone Unavailable [...]
--- OUTSIDE RECORDS SUMMARY | 2019-08-01 21:05 | XMS REPORT ---
:1935 Author Organization [facility] Care Team Providers Name Role Phone Unavailable [...]
--- OUTSIDE RECORDS SUMMARY | 2019-08-01 21:05 | XMS REPORT ---
:1935 Author Organization [facility] Care Team Providers Name Role Phone Unavailable [...]
--- OUTSIDE RECORDS SUMMARY | 2019-08-01 21:05 | XMS REPORT ---
:1935 Author Organization [facility] Care Team Providers Name Role Phone Unavailable [...]
--- OUTSIDE RECORDS SUMMARY | 2019-08-01 21:05 | XMS REPORT ---
:1935 Author Organization [facility] Care Team Providers Name Role Phone Unavailable [...]
--- OUTSIDE RECORDS SUMMARY | 2019-08-01 21:05 | XMS REPORT ---
:1935 Author Organization [facility] Care Team Providers Name Role Phone Unavailable [...]
--- OUTSIDE RECORDS SUMMARY | 2019-08-01 21:05 | XMS REPORT ---
:1935 Author Organization [facility] Care Team Providers Name Role Phone Unavailable [...]
--- OUTSIDE RECORDS SUMMARY | 2019-08-01 21:05 | XMS REPORT ---
:1935 Author Organization [facility] Care Team Providers Name Role Phone Unavailable [...] factor d 05-28 11:13:00 Viola present 11:13: [id number] 00 Safety risk for Safety Resolve 2019-05-28 Rigoberto hospitaliza d 05-28 11:13:00 Viola tion 11:13: [id number] 00 Safety can be left Safety Resolve 2019-05-28 Rigoberto alone for d 05-28 11:13:00 Viola only short 11:13: [id number] periods 00 Diagnoses knowledge/s Diagnoses Resolve 2019-05-28 Rigoberto kill d 05-28 11:13:00 Viola deficit: pt 11:13: [id number] 00 Balance/End balance/administrative assistant coordinator PT/OT: Resolve 2019-05-28 Rigoberto urance rdination Balance/En d 1-13 11:13:00 Farrukhtrudy deficit durance 11:13: [id number] 00 OT: Self self-care OT: Resolve 2019-05-28 Rigoberto Care deficit Self-Care d 05-28 11:13:00 Rivkaziewicz 11:13: [id number] 00 Gait/Locomo gait PT/OT: Resolve 2019-05-28 Rigoberto tion assistive Gait/Locom d 05-28 11:13:00 Rivkavivianetrudy problems device otion 11:13: [id number] present 00 Gait/Locomo gait PT/OT: Resolve 2019-05-28 Rigoberto tion deficit Gait/Locom d 05-28 11:13:00 Parishicz problems otion 11:13: [id number] 00 Allergies, Adverse Reactions, Alerts Allergy Allergy [...]
--- OUTSIDE RECORDS SUMMARY | 2019-08-01 21:05 | XMS REPORT ---
:1935 Author Organization [facility] Care Team Providers Name Role Phone Unavailable [...] factor d 05-28 11:13:00 Viola present 11:13: [id number] 00 Safety risk for Safety Resolve 2019-05-28 Rigoberto hospitaliza d 05-28 11:13:00 Viola tion 11:13: [id number] 00 Safety can be left Safety Resolve 2019-05-28 Rigoberto alone for d 05-28 11:13:00 Viola only short 11:13: [id number] periods 00 Diagnoses knowledge/s Diagnoses Resolve 2019-05-28 Rigoberto kill d 05-28 11:13:00 Viola deficit: pt 11:13: [id number] 00 Balance/End balance/agency service coordinator PT/OT: Resolve 2019-05-28 Rigoberto urance rdination Balance/En d 1-13 11:13:00 Farrukhtrudy deficit durance 11:13: [id number] 00 OT: Self self-care OT: Resolve 2019-05-28 Rigoberto Care deficit Self-Care d 05-28 11:13:00 Rivkaziewicz 11:13: [id number] 00 Gait/Locomo gait PT/OT: Resolve 2019-05-28 Rigoberto tion assistive Gait/Locom d 05-28 11:13:00 Rivkavivianetrudy problems device otion 11:13: [id number] present 00 Gait/Locomo gait PT/OT: Resolve 2019-05-28 Rigoberto tion deficit Gait/Locom d 05-28 11:13:00 Parishicz problems otion 11:13: [id number] 00 Allergies, Adverse Reactions, Alerts Allergy Allergy [...]
--- OUTSIDE RECORDS SUMMARY | 2019-08-01 21:05 | XMS REPORT ---
[...] Hypothyroid Hypothyroid Diagnosis Active Soila ism, ism, 05-28 Smith unspecified unspecified Unspecified Unspecified Diagnosis Active [...] factor d 05-28 11:13:00 Viola present 11:13: [id number] 00 Safety risk for Safety Resolve 2019-05-28 Rigoberto hospitaliza d 05-28 11:13:00 Viola tion 11:13: [id number] 00 Safety can be left Safety Resolve 2019-05-28 Rigoberto alone for d 05-28 11:13:00 Viola only short 11:13: [id number] periods 00 Diagnoses knowledge/s Diagnoses Resolve 2019-05-28 Rigoberto kill d 05-28 11:13:00 Viola deficit: pt 11:13: [id number] 00 Balance/End balance/care transition coordinator PT/OT: Resolve 2019-05-28 Rigoberto urance rdination Balance/En d 1-13 11:13:00 Farrukhtrudy deficit durance 11:13: [id number] 00 OT: Self self-care OT: Resolve 2019-05-28 Rigoberto Care deficit Self-Care d 05-28 11:13:00 Rivkaziewicz 11:13: [id number] 00 Gait/Locomo gait PT/OT: Resolve 2019-05-28 Rigoberto tion assistive Gait/Locom d 05-28 11:13:00 Rivkavivianetrudy problems device otion 11:13: [id number] present 00 Gait/Locomo gait PT/OT: Resolve 2019-05-28 Rigoberto tion deficit Gait/Locom d 05-28 11:13:00 Parishicz problems otion 11:13: [id number] 00 Allergies, Adverse Reactions, Alerts Allergy Allergy [...]
--- OUTSIDE RECORDS SUMMARY | 2019-08-01 21:05 | XMS REPORT ---
:1935 Author Organization [facility] Care Team Providers Name Role Phone Unavailable Unavailable Unavailable Problems Condition Condition Condition Status Onset Resolution Last Treating Comments Name Details Category Date Date Treatment Clinician Date Age-related Age-related Diagnosis Active Soial osteoporosi osteoporosi 3-02 Smith s without s [...]
--- OUTSIDE RECORDS SUMMARY | 2019-08-01 21:05 | XMS REPORT ---
:1935 Author Organization [facility] Care Team Providers Name Role Phone Unavailable [...] factor d 05-28 11:13:00 Viola present 11:13: [id number] 00 Safety risk for Safety Resolve 2019-05-28 Rigoberto hospitaliza d 05-28 11:13:00 Viola tion 11:13: [id number] 00 Safety can be left Safety Resolve 2019-05-28 Rigoberto alone for d 05-28 11:13:00 Viola only short 11:13: [id number] periods 00 Diagnoses knowledge/s Diagnoses Resolve 2019-05-28 Rigoberto kill d 05-28 11:13:00 Viola deficit: pt 11:13: [id number] 00 Balance/End balance/pesticide use medical coordinator PT/OT: Resolve 2019-05-28 Rigoberto urance rdination Balance/En d 1-13 11:13:00 Farrukhtrudy deficit durance 11:13: [id number] 00 OT: Self self-care OT: Resolve 2019-05-28 Rigoberto Care deficit Self-Care d 05-28 11:13:00 Rivkaziewicz 11:13: [id number] 00 Gait/Locomo gait PT/OT: Resolve 2019-05-28 Rigoberto tion assistive Gait/Locom d 05-28 11:13:00 Rivkavivianetrudy problems device otion 11:13: [id number] present 00 Gait/Locomo gait PT/OT: Resolve 2019-05-28 Rigoberto tion deficit Gait/Locom d 05-28 11:13:00 Parishicz problems otion 11:13: [id number] 00 Allergies, Adverse Reactions, Alerts Allergy Allergy [...]
--- OUTSIDE RECORDS SUMMARY | 2019-08-01 21:05 | XMS REPORT ---
:1935 Author Organization [facility] Care Team Providers Name Role Phone Unavailable [...]
--- OUTSIDE RECORDS SUMMARY | 2019-08-01 21:05 | XMS REPORT ---
:1935 Author Organization [facility] Care Team Providers Name Role Phone Unavailable [...]
--- OUTSIDE RECORDS SUMMARY | 2019-08-01 21:05 | XMS REPORT ---
:1935 Author Organization [facility] Care Team Providers Name Role Phone Unavailable [...] factor d 05-28 11:13:00 Viola present 11:13: [id number] Safety risk for Safety Resolve 2019-05-28 Rigoberto hospitaliza d 05-28 11:13:00 Viola tion 11:13: [id number] 00 Safety can be left Safety Resolve 2019-05-28 Rigoberto alone for d 05-28 11:13:00 Viola only short 11:13: [id number] periods 00 Diagnoses knowledge/s Diagnoses Resolve 2019-05-28 Rigoberto kill d 05-28 11:13:00 Viola deficit: pt 11:13: [id number] 00 Balance/End balance/sales appointment coordinator PT/OT: Resolve 2019-05-28 Rigoberto urance rdination Balance/En d 1-13 11:13:00 Farrukhtrudy deficit durance 11:13: [id number] 00 OT: Self self-care OT: Resolve 2019-05-28 Rigoberto Care deficit Self-Care d 05-28 11:13:00 Rivkaziewicz 11:13: [id number] 00 Gait/Locomo gait PT/OT: Resolve 2019-05-28 Rigoberto tion assistive Gait/Locom d 05-28 11:13:00 Rivkavivianetrudy problems device otion 11:13: [id number] present 00 Gait/Locomo gait PT/OT: Resolve 2019-05-28 Rigoberto tion deficit Gait/Locom d 05-28 11:13:00 Parishicz problems otion 11:13: [id number] 00 Allergies, Adverse Reactions, Alerts Allergy Allergy [...]
--- OUTSIDE RECORDS SUMMARY | 2019-08-01 21:05 | XMS REPORT ---
:1935 Author Organization [facility] Care Team Providers Name Role Phone Unavailable [...] factor d 05-28 11:13:00 Viola present 11:13: [id number] Safety risk for Safety Resolve 2019-05-28 Rigoberto hospitaliza d 05-28 11:13:00 Viola tion 11:13: [id number] 00 Safety can be left Safety Resolve 2019-05-28 Rigoberto alone for d 05-28 11:13:00 Viola only short 11:13: [id number] periods 00 Diagnoses knowledge/s Diagnoses Resolve 2019-05-28 Rigoberto kill d 05-28 11:13:00 Viola deficit: pt 11:13: [id number] 00 Balance/End balance/relocation coordinator PT/OT: Resolve 2019-05-28 Rigoberto urance rdination Balance/En d 1-13 11:13:00 Farrukhtrudy deficit durance 11:13: [id number] 00 OT: Self self-care OT: Resolve 2019-05-28 Rigoberto Care deficit Self-Care d 05-28 11:13:00 Rivkaziewicz 11:13: [id number] 00 Gait/Locomo gait PT/OT: Resolve 2019-05-28 Rigoberto tion assistive Gait/Locom d 05-28 11:13:00 Rivkavivianetrudy problems device otion 11:13: [id number] present 00 Gait/Locomo gait PT/OT: Resolve 2019-05-28 Rigoberto tion deficit Gait/Locom d 05-28 11:13:00 Parishicz problems otion 11:13: [id number] 00 Allergies, Adverse Reactions, Alerts Allergy Allergy [...]
--- OUTSIDE RECORDS SUMMARY | 2019-08-01 21:05 | XMS REPORT ---
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 PT/OT: Resolve 2019-05-28 Rigoberto urance rdination Balance/En d 1-13 11:13:00 Farrukhtrudy deficit durance 11:13: [id number] 00 OT: Self self-care OT: Resolve 2019-05-28 Rigoberto Care deficit Self-Care d 05-28 11:13:00 Rivkaziewicz 11:13: [id number] 00 Gait/Locomo gait PT/OT: Resolve 2019-05-28 Rigoberto tion assistive Gait/Locom d 05-28 11:13:00 Rivkavivianetrudy problems device otion 11:13: [id number] present 00 Gait/Locomo gait PT/OT: Resolve 2019-05-28 Rigoberto tion deficit Gait/Locom d 05-28 11:13:00 Parishicz problems otion 11:13: [id number] 00 Allergies, Adverse Reactions, Alerts Allergy Allergy [...]
--- OUTSIDE RECORDS SUMMARY | 2019-08-01 21:05 | XMS REPORT ---
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 PT/OT: Resolve 2019-05-28 Rigoberto urance rdination Balance/En d 1-13 11:13:00 Farrukhtrudy deficit durance 11:13: [id number] 00 OT: Self self-care OT: Resolve 2019-05-28 Rigoberto Care deficit Self-Care d 05-28 11:13:00 Rivkaziewicz 11:13: [id number] 00 Gait/Locomo gait PT/OT: Resolve 2019-05-28 Rigoberto tion assistive Gait/Locom d 05-28 11:13:00 Rivkavivianetrudy problems device otion 11:13: [id number] present 00 Gait/Locomo gait PT/OT: Resolve 2019-05-28 Rigoberto tion deficit Gait/Locom d 05-28 11:13:00 Parishicz problems otion 11:13: [id number] 00 Allergies, Adverse Reactions, Alerts Allergy Allergy [...]
--- OUTSIDE RECORDS SUMMARY | 2019-08-01 21:05 | XMS REPORT ---
:1935 Author Organization [facility] Care Team Providers Name Role Phone Unavailable Unavailable Unavailable Problems Condition Condition Condition Status Onset Resolution Last Treating Comments Name Details Category Date Date Treatment Clinician Date Unspecified Unspecified Diagnosis Active Soila diastolic diastolic 1- Smith (congestive (congestive ) heart ) heart [...] factor d 05-28 11:13:00 Viola present 11:13: [id number] Safety risk for Safety Resolve 2019-05-28 Rigoberto hospitaliza d 05-28 11:13:00 Viola tion 11:13: [id number] 00 Safety can be left Safety Resolve 2019-05-28 Rigoberto alone for d 05-28 11:13:00 Viola only short 11:13: [id number] periods 00 Diagnoses knowledge/s Diagnoses Resolve 2019-05-28 Rigoberto kill d 05-28 11:13:00 Viola deficit: pt 11:13: [id number] 00 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 PT/OT: Resolve 2019-05-28 Rigoberto urance rdination Balance/En d 1-13 11:13:00 Farrukhtrudy deficit durance 11:13: [id number] 00 OT: Self self-care OT: Resolve 2019-05-28 Rigoberto Care deficit Self-Care d 05-28 11:13:00 Rivkaziewicz 11:13: [id number] 00 Gait/Locomo gait PT/OT: Resolve 2019-05-28 Rigoberto tion assistive Gait/Locom d 05-28 11:13:00 Rivkavivianetrudy problems device otion 11:13: [id number] present 00 Gait/Locomo gait PT/OT: Resolve 2019-05-28 Rigoberto tion deficit Gait/Locom d 05-28 11:13:00 Parishicz problems otion 11:13: [id number] 00 Allergies, Adverse Reactions, Alerts Allergy Allergy [...]
--- OUTSIDE RECORDS SUMMARY | 2019-08-01 21:05 | XMS REPORT ---
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 PT/OT: Resolve 2019-05-28 Rigoberto urance rdination Balance/En d 1-13 11:13:00 Farrukhtrudy deficit durance 11:13: [id number] 00 OT: Self self-care OT: Resolve 2019-05-28 Rigoberto Care deficit Self-Care d 05-28 11:13:00 Rivkaziewicz 11:13: [id number] 00 Gait/Locomo gait PT/OT: Resolve 2019-05-28 Rigoberto tion assistive Gait/Locom d 05-28 11:13:00 Rivkavivianetrudy problems device otion 11:13: [id number] present 00 Gait/Locomo gait PT/OT: Resolve 2019-05-28 Rigoberto tion deficit Gait/Locom d 05-28 11:13:00 Parishicz problems otion 11:13: [id number] 00 Allergies, Adverse Reactions, Alerts Allergy Allergy [...]
[2019-08-01 21:14] LABS: ABS Basophils 0.1 10^3/ul (0-0.2); ABS Eosinophils 0.1 10^3/ul (0-0.6); ABS Lymphocytes 2.3 10^3/ul (1.0-4.8); ABS Monocytes 0.9 10^3/ul (0-0.8); ABS Neutrophils 5.6 10^3/ul (1.5-7.7); Eosinophil % 1.1 %; Hematocrit 37 % (35-47); Hemoglobin 12.8 g/dL (12.0-16.0); Lymphocyte % 25.5 %; Mean Corpuscular HGB Conc 35 g/dL (31-36); Mean Corpuscular Hemoglobin 30 pg (27-31); Mean Corpuscular Volume 88 fL (80-97); Mean Platelet Volume 7.6 fL (7.4-10.4); Platelet Count 352 10^3/uL (150-450); Red Blood Count 4.19 10^6 /uL (3.70-4.87); Red Cell Distribution Width 13 % (10-15); White Blood Count 8.9 10^3/uL (3.5-10.8)
[2019-08-01 21:24] LABS: Activated Partial Thrombo Time 32.2 seconds (26.0-38.0); INR 1.01 (0.82-1.09)
[2019-08-01 21:30] LABS: Albumin 3.8 g/dL (3.2-5.2); Albumin/Globulin Ratio 1.2 (1-3); BUN/Creatinine Ratio 26.2 (8-20); Calcium 9.5 mg/dL (8.6-10.3); EGFR Non-African American 64.4 (>60); Globulin 3.1 g/dL (2-4); Potassium 4.1 mmol/L (3.5-5.0); Total Bilirubin 0.5 mg/dL (0.2-1.0); Total Protein 6.9 g/dL (6.4-8.9)
[2019-08-01] MEDS ORDERED: Lidocaine 1% INJ* 10 MG/ML 30 ML SDV INJ ONE (22:07)
[2019-08-01] MEDS ORDERED: Lidocaine 1% MPF ** 5 ML VIAL ONE (22:09)
[2019-08-01 22:33] VITALS: BP 138/84
--- NOTE | 2019-08-01 23:22 | ED ---
Head Injury - HPI Summary HPI Summary: 83-year-old female presents to the emergency Department today status post unwitnessed fall at her skilled nursing approximately 30 minutes ago. The patient denies loss of consciousness or amnesia. Patient has a noted 1.5 cm laceration and hematoma superior to the left orbit. Patient states she slipped and had a mechanical fall and denies loss of consciousness. Patient has full range of motion of the neck and is alert and oriented to person and time but not place. Patient appears to be in no acute distress with no neurological deficits. Patient has no complaints at this time and denies pain, fever, chest pain, abdominal pain, pain with urination, rash, nausea, vomiting, diarrhea. - History Of Current Complaint Chief Complaint: EDFall Stated Complaint: FALL PER EMS Time Seen by Provider: 08/01/19 20:51 Hx Obtained From: Patient Mechanism Of Injury: Unknown Onset/Duration: Started Minutes Ago Onset of Pain: Immediate Severity Currently: Mild Severity Initially: Mild Pain Intensity: 2 Pain Scale Used: 0-10 Numeric Associated Signs And Symptoms: Swelling, Bruising - Allergies/Home Medications Allergies/Adverse Reactions: Allergies Allergy/AdvReac Type Severity Reaction Status Date / Time No Known Allergies Allergy Verified 07/22/19 17:00 Home Medications: Home Medications Multivit-Min/Ferrous Gluconate [Multivitamin & Mineral] 1 tab PO DAILY 03/02/12 [History Confirmed 08/01/19] Calcium Carb/Mag Ox/Zinc Sulf [Calcium & Magnesium + Zin 334-134-5 mg] 1 tab PO DAILY 02/03/16 [History Confirmed 08/01/19] Levothyroxine TAB* [Synthroid TAB*] 88 mcg PO 0800 02/03/16 [History Confirmed 08/01/19] Ascorbic Acid [Vitamin C] 1,000 mg PO DAILY 06/02/18 [History Confirmed 08/01/19 ] PMH/Surg Hx/FS Hx/Imm Hx Endocrine/Hematology History: Reports: Hx Thyroid Disease - hypo Denies: Hx Diabetes, Hx Anemia Cardiovascular History: Reports: Hx Hypertension - IN THE PAST WHEN NERVOUS- NO PROBLEMS RECENTLY, Other Cardiovascular Problems/Disorders - COUPLE OF EPISODES OF CHEST PRESSURE WHEN WAS YOUNGER Denies: Hx Pacemaker/ICD Respiratory History: Reports: Hx Sleep Apnea Denies: Hx Asthma, Hx Chronic Obstructive Pulmonary Disease (COPD) GI History: Denies: Hx Jaundice, Hx Ulcer Musculoskeletal History: Reports: Hx Arthritis - fingers, Hx Osteoporosis Sensory History: Reports: Hx Contacts or Glasses - GLASSES, Hx Hearing Aid Opthamlomology History: Reports: Hx Contacts or Glasses - GLASSES Neurological History: Reports: Hx Headaches, Hx Migraine - WHEN WAS YOUNGER- STATES WAS RELATED TO COFFEE Psychiatric History: Denies: Hx Panic Disorder - Cancer History Cancer Type, Location and Year: melanoma of the right leg at age 18 . Hx Chemotherapy: No Hx Radiation Therapy: No Hx Palliative Cancer Treatment: No - Surgical History Surgery Procedure, Year, and Place: rt shoulder SX and replacement; recently FX left wrist X 2. REMOVAL OF LESION FROM LEG Hx Anesthesia Reactions: No - Immunization History Date of Influenza Vaccine: none Infectious Disease History: No Infectious Disease History: Denies: Hx Clostridium Difficile, Hx Hepatitis, Hx Human Immunodeficiency Virus (HIV), Hx of Known/Suspected MRSA, Hx Shingles, Hx Tuberculosis, Hx Known/ Suspected VRE, Hx Known/Suspected VRSA, History Other Infectious Disease, Traveled Outside the [place] in Last 30 Days - Family History Known Family History: Positive: Hypertension - Social History Alcohol Use: Rare Substance Use Type: Reports: None Smoking Status (MU): Former Smoker Type: Cigarettes Amount Used/How Often: 1/4 PPD Length of Time of Smoking/Using Tobacco: 7 years Have You Smoked in the Last Year: No Review of Systems Constitutional: Negative Eyes: Negative ENT: Negative Cardiovascular: Negative Respiratory: Negative Gastrointestinal: Negative Genitourinary: Negative Musculoskeletal: Negative Positive: Bruising Neurological/Mental Status: Negative Psychological: Normal All Other Systems Reviewed And Are Negative: Yes Physical Exam - Summary Physical Exam Summary: Patient is in no acute distress. Patient is alert and oriented 2, likely due to dementia. Patient has no midline tenderness to palpation of the cervical spine. There is a noted area of hematoma and 1.5 cm laceration superior to the left orbit. EOMI. PERRLA. Triage Information Reviewed: Yes Vital Signs On Initial Exam: Initial Vitals Temp Pulse Resp BP Pulse Ox 98.2 F 98 18 152/94 97 08/01/19 20:54 08/01/19 20:54 08/01/19 20:54 08/01/19 20:54 08/01/19 20:54 Vital Signs Reviewed: Yes Appearance: Positive: Well-Appearing, No Pain Distress, Well-Nourished Skin: Positive: Warm, Skin Color Reflects Adequate Perfusion Eyes: Positive: EOMI, VERONICA ENT: Positive: Hearing grossly normal Respiratory/Lung Sounds: Positive: Clear to Auscultation, Breath Sounds Present Cardiovascular: Positive: RRR, S1, S2 Abdomen Description: Positive: Nontender, Soft Musculoskeletal: Positive: Strength/ROM Intact Neurological: Positive: Sensory/Motor Intact, Alert, Oriented to Person Place, Time, Normal Gait, Facial Symmetry, Speech Normal Psychiatric: Positive: Normal, Affect/Mood Appropriate AVPU Assessment: Alert Procedures - Sedation Patient Received Moderate/Deep Sedation with Procedure: No - Laceration/Wound Repair 1 Location: face Description: Linear Anesthesia: Local, 1.0% Length, Depth and Shape: 1.5 cm 3 mm Betadine Prep?: No Irrigated w/ Saline (ccs): 100 Laceration/Wound Explored: clean Closure: Single Layer Suture Type: Prolene - 60 Number of Sutures: 3 - placed in simple interrupted fashion Layer Closure?: No Sterile Dressing Applied?: No Diagnostics - Vital Signs Vital Signs Temp Pulse Resp BP Pulse Ox 08/01/19 23:06 99.3 F 100 20 138/84 94 08/01/19 22:31 96 20 138/84 96 08/01/19 22:01 96 18 151/106 97 08/01/19 22:00 97 16 95 08/01/19 21:01 97 152/94 98 08/01/19 21:00 95 84 08/01/19 20:54 98.2 F 98 18 152/94 97 - Laboratory Lab Results: Lab Results 08/01/19 08/01/19 08/01/19 Range/Units 21:07 21:07 21:07 WBC 8.9 (3.5-10.8) 10^3/uL RBC 4.19 (3.70-4.87) 10^6 /uL Hgb 12.8 (12.0-16.0) g/dL Hct 37 (35-47) % MCV 88 (80-97) fL MCH 30 (27-31) pg MCHC 35 (31-36) g/dL RDW 13 (10-15) % Plt Count 352 (150-450) 10^3/uL MPV 7.6 (7.4-10.4) fL Neut % (Auto) 62.8 % Lymph % (Auto) 25.5 % [place] % (Auto) 9.7 % Eos % (Auto) 1.1 % Baso % (Auto) 0.9 % Absolute Neuts (auto) 5.6 (1.5-7.7) 10^3/ul Absolute Lymphs (auto) 2.3 (1.0-4.8) 10^3/ul Absolute Monos (auto) 0.9 H (0-0.8) 10^3/ul Absolute Eos (auto) 0.1 (0-0.6) 10^3/ul Absolute Basos (auto) 0.1 (0-0.2) 10^3/ul Absolute Nucleated RBC 0.0 10^3/ul Nucleated RBC % 0.0 INR (Anticoag Therapy) 1.01 (0.82-1.09) APTT 32.2 (26.0-38.0) seconds Sodium 126 L (135-145) mmol/L Potassium 4.1 (3.5-5.0) mmol/L Chloride 92 L (101-111) mmol/L Carbon Dioxide 27 (22-32) mmol/L Anion Gap 7 (2-11) mmol/L BUN 22 (6-24) mg/dL Creatinine 0.84 (0.51-0.95) mg/dL Est GFR ( Amer) 78.0 (>60) Est GFR (Non-Af Amer) 64.4 (>60) BUN/Creatinine Ratio 26.2 H (8-20) Glucose 109 H (70-100) mg/dL Calcium 9.5 (8.6-10.3) mg/dL Total Bilirubin 0.50 (0.2-1.0) mg/dL AST 35 (13-39) U/L ALT 21 (7-52) U/L Alkaline Phosphatase 137 H (34-104) U/L Total Protein 6.9 (6.4-8.9) g/dL Albumin 3.8 (3.2-5.2) g/dL Globulin 3.1 (2-4) g/dL Albumin/Globulin Ratio 1.2 (1-3) Result Diagrams: 08/01/19 21:07 08/01/19 21:07 Lab Statement: Any lab studies that have been ordered have been reviewed, and results considered in the medical decision making process. Head Injury Course/Dx Course Of Treatment: Patient was evaluated in the emergency Department today status post mechanical fall. Vitals noted and stable. Patient had no obvious neurological deficits. CT scan of the cervical spine and brain were done which showed no evidence of fracture or intracranial pathology. Patient's laceration was repaired using 3 60 prolene sutures placed in simple interrupted fashion after patient's wound was irrigated. Patient was ambulatory and appeared to be in no acute distress with no sequela from her fall. Patient discharged with outpatient follow-up. - Diagnoses Differential Diagnosis/HQI/PQRI: Cervical Sprain, Concussion Without LOC, Contusion, Hematoma, Laceration, Skull Fracture Provider Diagnoses: Facial laceration, Fall Discharge ED - Sign-Out/Discharge Documenting (check all that apply): Patient Departure - Discharge Plan Condition: Stable Disposition: HOME Patient Education Materials: Care For Your Stitches (ED), Laceration (ED), Fall Prevention for Older Adults (ED) Referrals: Dario Caceres MD [Primary Care Provider] - 3 Days Additional Instructions: Please have your sutures removed in 8 days, This may be done by your PCP, an urgent care or this ER. Please follow up with your PCP in 3 days for further evaluation and management. Return to the emergency department immediately if you develop any new or worsening symptoms. - Billing Disposition and Condition Condition: STABLE Disposition: Home
== END 2019-08-01 23:06 | disposition home or self-care (01) ==
LOC: ED 20:49
DX: S01.81XA Laceration without foreign body of other part of head, initial encounter (principal); W01.0XXA Fall on same level from slipping, tripping and stumbling without subsequent striking against object, initial encounter; Y92.129 Unspecified place in nursing home as the place of occurrence of the external cause; E03.9 Hypothyroidism, unspecified; I10 Essential (primary) hypertension; Z79.890 Hormone replacement therapy; Z87.891 Personal history of nicotine dependence
CPT/HCPCS: 12011; 36415; 70450; 72125; 80053; 85025; 85610; 85730; 99284